=== PATIENT | female | born 1950 | race Caucasian/White ===

== ENCOUNTER 2017-06-20 08:49 | Day surgery (SDC) | payer OTHER ==
[2017-05-19 13:11] VITALS: BMI 49.0
[2017-05-19 13:21] VITALS: BMI 49.0
[2017-06-16 10:03] VITALS: BMI 52.0
--- NOTE | 2017-06-16 10:29 | PAT Medication Instructions ---
Service Date Jun 16, 2017. Current Home Medication List Aspirin (Aspirin Ec), 2 TABS PO QAM Cholecalciferol (Vitamin D3), 1 TAB PO QAM Glipizide (Glipizide Er), 1 TAB PO QPM Hydrochlorothiazide (Hctz), 50 MG PO QAM Latanoprost (Xalatan 0.005% Oph Mildred), 1 DROPS OPB HS Lisinopril (Zestril), 40 MG PO QAM Metformin HCl (Metformin HCl), 1 TAB PO BID Metoprolol Succ (Toprol Xl) (Toprol-Xl ), 100 MG PO QAM Multiple Vitamins W/ Minerals (Preservision Areds 2), 1 CAP PO BID Tramadol (Ultram), 50 MG PO Q8-12H PRN for Pain Trazodone HCl (Trazodone HCl), 1 TAB PO HS Medication Instructions For Your Scheduled Surgery - Check with surgeon for instructions: Aspirin (Aspirin Ec), 2 TABS PO QAM - Hold the following medications 48 hours prior to surgery: Metformin HCl (Metformin HCl), 1 TAB PO BID - Hold the following medications the morning of surgery: Cholecalciferol (Vitamin D3), 1 TAB PO QAM Hydrochlorothiazide (Hctz), 50 MG PO QAM Lisinopril (Zestril), 40 MG PO QAM Multiple Vitamins W/ Minerals (Preservision Areds 2), 1 CAP PO BID - Take the following medications the morning of surgery with a sip of water: Tramadol (Ultram), 50 MG PO Q8-12H PRN for Pain (okay to take up to 4 hours prior to surgery if needed) Metoprolol Succ (Toprol Xl) (Toprol-Xl ), 100 MG PO QAM Amlodipine 10mg daily - Take the following medications as scheduled the night before surgery: Latanoprost (Xalatan 0.005% Oph Mildred), 1 DROPS OPB HS Trazodone HCl (Trazodone HCl), 1 TAB PO HS Tramadol (Ultram), 50 MG PO Q8-12H PRN for Pain (if needed) Glipizide (Glipizide Er), 1 TAB PO QPM If you have any questions please call us at [phone] or [phone] or [phone]
--- NOTE | 2017-06-16 11:04 | DIAGNOSTIC IMAGING REPORT ---
TWO VIEW CHEST CLINICAL HISTORY: Preoperative examination. FINDINGS: PA and lateral chest radiographs are obtained. No prior studies are available for comparison at the time of dictation. The cardiomediastinal silhouette is unremarkable. Linear atelectasis versus scarring is seen in the left lower lung. There is mild elevation of right hemidiaphragm. No airspace consolidation or pleural effusion is seen. There is no pneumothorax. The skeletal structures are osteopenic. Degenerative change is noted throughout the thoracic spine. Surgical clips are noted in the upper abdomen. IMPRESSION: No active disease in the chest. Electronically signed by: Jesus Michael M.D. 06/16/2017 11:03 AM Dictated Date/Time: 06/16/2017 11:02 AM
[2017-06-16 11:37] LABS: PTT PATIENT 22.6 SECONDS (21.0-31.0)
[~2017-06-20] VITALS: Ht 154.9 cm; Wt 123.8 kg
[~2017-06-20 08:49] MED LIST: AMLO10TA3 PO; ASPI81TA28 PO; ATROPINE SULFATE 0.1 MG/ML 5ML SYR IV PRN; CHOL20007 PO; CLINDAMYCIN IV 900 MG in DEXTROSE 5% 50ML IV SCH; DSY/150 PO; EpHEDrine SULFATE INJ 50 MG/ML AMP IV PRN; FENTANYL CITRATE INJ 50 MCG/1 ML 2 ML VIAL IV PRN; GLC500 PO; GLIP-197 PO; HYDR50TA3 PO; LACTATED RINGER'S 1000ML 1,000 ML IV SCH; LATA0.5S OPB; LISI-794 PO; METO100T44 PO; MULT60CA PO; ONDANSETRON INJ 2 MG/ML 2 ML VIAL IV PRN; ROPIVACAINE 0.5% 5 MG/ML 30 ML VIAL ONE; TRAM-10 PO
[2017-06-20] MEDS ORDERED: MIDAZOLAM HCL 1 MG/ML 2ML VIAL ONE (09:29)
[2017-06-20] MEDS ORDERED: EpHEDrine SULFATE INJ 50 MG/ML AMP ONE (09:29)
[2017-06-20] MEDS ORDERED: DEXAMETHASONE SOD INJ 4 MG/ML VIAL ONE (09:29)
[2017-06-20] MEDS ORDERED: SUCCINYLCHOLINE CHLORIDE 20 MG/ML 10 ML VIAL IV ONE (09:29)
[2017-06-20] MEDS ORDERED: ONDANSETRON INJ 2 MG/ML 2 ML VIAL ONE (09:29)
[2017-06-20] MEDS ORDERED: FENTANYL CITRATE INJ 50 MCG/1 ML 2 ML VIAL ONE (09:29)
[2017-06-20] MEDS ORDERED: PROPOFOL IV EMULSION 10 MG/ML 20 ML VIAL IV ONE (09:29)
[2017-06-20] MEDS ORDERED: NEOSTIGMINE METHYLSULFATE 5 MG/5 ML SYR ONE (09:29)
[2017-06-20] MEDS ORDERED: GLYCOPYRROLATE INJ 0.2 MG/ML VIAL ONE (09:29)
[2017-06-20] MEDS ORDERED: LIDOCAINE HCL 2% 2 ML VIAL (20MG/ML) ONE (09:29)
[2017-06-20] MEDS ORDERED: PHENYLEPHRINE HCL INJ 10 MG/ML VIAL ONE (09:29)
[2017-06-20 09:33] VITALS: BP_SYST 170; PULSE 79; TEMP 36.5; O2SAT 98; Ht 154.9 cm; Wt 123.8 kg
--- NOTE | 2017-06-20 09:36 | History & Physical Bridge Note ---
H&P Re-Evaluation Bridge Note: I have examined the patient, reviewed the History & Physical and in the interval since the performance of the History & Physical I have noted the following changes of clinical significance:chart reviewed/consent reviewed. No changes noted
[2017-06-20] MEDS ORDERED: SODIUM CHLORIDE 0.9% 1000ML 1,000 ML IV SCH (09:38)
--- NOTE | 2017-06-20 09:38 | Discharge Instructions ---
Discharge Instructions Date of Service Jun 20, 2017. Visit Reason for Visit: Left Shoulder Rotator Cuff Tear Discharge Discharge Diagnosis / Problem: same Discharge Goals Goal(s): Decrease discomfort, Improve function, Increase independence Medications Stopped Medications Name(s): resume all meds as scripts dictate Restart Stopped Medication(s): see above Activity Recommendations Activity Limitations: as noted below Lifting Limitations: until after follow-up appointment Exercise/Sports Limitations: until after follow-up appointment May Resume Sexual Activity: when tolerated, after follow-up appointment Shower/Bathe: keep incision dry Driving or Machine Use: Anesthesia . Post Anesthesia Instructions: If you have had General Anesthesia or IV Sedation: * Do not drive today. * Resume driving when surgeon permits. * Do not make important decisions or sign legal documents today. * Call surgeon for: 1. Temperature elevations greater than 101 degrees F. 2. Uncontrollable pain. 3. Excessive bleeding. 4. Persistent nausea and vomiting. 5. Medication intolerance (nausea, vomiting or rash). * For nausea and vomiting use only clear liquids such as: tea, soda, bouillon until nausea subsides, then gradually increase diet as tolerated. * If you have any concerns or questions, call your surgeon's office. If physician is unavailable and it is an emergency, call 911 or go to the nearest emergency room. . Instructions / Follow-Up Instructions / Follow-Up The following are instructions to follow after "Shoulder Surgery" including, Acromioplasty, Rotator Cuff Repair and Instability Surgery ACTIVITY RECOMMENDATIONS: * Minimize activity after surgery. * No excessive walking, jogging, sports or laboring. * Return to activity is individualized depending on the patient and type of surgery. * Driving is not permitted until at least your first post operative visit. Please ask your doctor when it is safe to resume driving. * Expect increased discomfort with increased activity. Continue to ice the shoulder as needed. SCHOOL/WORK RECOMMENDATIONS: * You may return to sedentary work or school when you are feeling more comfortable. This is usually 3-7 days after surgery. MEDICATIONS: * You will have a prescription for pain medication and an anti-inflammatory medication after surgery. * Use the pain medication for severe pain and the anti-inflammatory for less severe pain. Once the pain medication has run out, try to use the anti-inflammatory medication. If this is not effective, contact the office for assistance. * The pain medication may cause nausea, constipation and drowsiness. You should see how they affect you before driving or similar activity. * The anti-inflammatory medication may cause stomach upset and bleeding. If this occurs let your doctor know immediately . * Take a stool softener like Colace or a laxative like Senokot to prevent constipation. DIET: * Resume previous diet. SPECIAL CARE: ICE: You have the option of an ice cooler, gel packs or ice bags. * If you have an ice cooler, refer to the instructions for that device. The ice cooler may be used continuously. * If you do not have an ice cooler, you will need to use ice bags or gel packs. Do not apply ice directly to the skin. Use a thin dressing or jerad shirt between the skin and ice bag. Apply ice for 20-30 minutes and repeat every 2-4 hours. This is especially important for the first 7-10 days after surgery. Once the pain improves, use ice as needed. ELEVATION: * You may be more comfortable sleeping in an upright position. Use the sling to elevate your arm. DRESSING: * Your dressing will be changed at your first therapy appointment approximately 4-5 days after surgery. Band-aids, tape strips or gauze may be applied. You may then change your dressing daily. * Reapply dressing followed by the EBIce cooling pad (if chosen) and then the sling. * Always wash your hands prior to touching the incision area. * Once the stitches are removed, you may leave the wound open to air or cover with gauze. * Expect some bloody drainage for the first few days after surgery. * Leave the tape strips, if present, in place for 5-7 days. * Band-aids and gauze may be changed daily. * There may be a gauze pad in your armpit area. This can be changed daily or replaced by a dry washcloth. SLING/BRACE: * You will need to use a sling or brace after surgery. The length of time the sling is used is dependent upon the type of surgery performed. * Arthroscopic Acromioplasty requires use of the sling for 2-4 weeks for comfort. * Labral procedures and Rotator Cuff Repairs require use of the sling for a longer period of time. Please check with your doctor prior to discontinuing the sling. BATHING: * You may shower or sponge-bathe immediately after surgery. The post operative shoulder dressing is mostly water-tight. You may shower right over this dressing, but be reasonably careful not to get the gauze or incision wet. * Once the dressing has been changed on the fourth or fifth day after surgery, you may shower and get the incision wet. * Wash with regular soap and water. * Do not bathe (submerge the incision), soak, swim or use a hot tub until the incision is completely healed over with normal skin and the doctor has given the OK to proceed. * There is no need to apply any ointments, powders or salves to your incision. * Do not apply alcohol or hydrogen peroxide directly to the incision. * Diluted peroxide (50:50 mixture with sterile saline) may be used to clean dried blood from around the incision area. THERAPY: * You will begin therapy four or five days after surgery. * Organized therapy with the therapist is important for the first 2-4 months after surgery depending on the type of procedure. During that time you will attend therapy 1-3 times per week. * You will also need to do daily exercises for range of motion and strength as instructed. * Patients who have a Capsular Shift Procedure will need to abide by temporary range of motion limitations. * Patients having Rotator Cuff Surgery are not allowed to actively lift their arms until 4-6 weeks after surgery. * Please check with your doctor regarding appropriate motion restrictions. FOLLOW UP VISIT: * If not already scheduled, please call the office at to schedule a follow-up appointment for 10 days after surgery and monthly thereafter. Diet Recommendations Recommended Home Diet: resume previous diet Procedures Procedures Performed: see op note Pending Studies Studies pending at discharge: no Medical Emergencies . Who to Call and When: Medical Emergencies: If at any time you feel your situation is an emergency, please call 911 immediately. . Non-Emergent Contact Non-Emergency issues call your: Specialist Call Non-Emergent contact if: temperature is above 101.5, wound has increased drainage, wound has increased redness, wound has increased pain . . "Provider Documentation" section prepared by Valentin Vences. .
[2017-06-20] MEDS ORDERED: LIDOCAINE HCL 2% LOCAL 50ML VIAL ONE (09:40)
[2017-06-20] MEDS ORDERED: EpINEphrine HCL INJ 1 MG/ML 1ML SYRINGE ONE (09:40)
[2017-06-20] MEDS ORDERED: KETOROLAC TROMETHAMINE 15 MG/ML VIAL IV. PRN (09:45)
[2017-06-20] MEDS ORDERED: ONDANSETRON INJ 2 MG/ML 2 ML VIAL IV PRN (09:45)
[2017-06-20] MEDS ORDERED: OXYCODONE/ACETAMINOPHEN 5-325 TAB PO PRN (09:45)
[2017-06-20] MEDS ORDERED: SODIUM CHLORIDE 0.9% INJ 10 ML VIAL ONE (10:12)
[2017-06-20] MEDS ORDERED: BUPIVACAINE 0.5 % 5 MG/1 ML MPF 30ML VIAL ONE (10:32)
--- NOTE | 2017-06-20 11:59 | [facility] Post Operative Brief Note ---
Immediate Operative Summary Operative Date Jun 20, 2017. Pre-Operative Diagnosis rortator cuff tear , left shoulder Post-Operative Diagnosis same Procedure(s) Performed Left Shoulder: Arthroscopy, 2 cm Rotator Cuff Repair, Biceps Tenotomy , Subacromial Decompression Surgeon Dr Vences Cupola Melter Helper Surgeon(s) none Estimated Blood Loss 20ml Findings biceps tendonopathy/impingement/rotator cuff tear Fluids (cc crystalloids) 1100cc Specimens none Drains none Anesthesia GET/block Complication(s) None Disposition Recovery Room / PACU
--- NOTE | 2017-06-20 12:21 | OPERATIVE REPORT ---
DATE OF OPERATION: 06/20/2017 PREOPERATIVE DIAGNOSIS: Left shoulder rotator cuff tear, biceps tendinopathy and impingement. POSTOPERATIVE DIAGNOSIS: Same. OPERATION PERFORMED: 1. Exam under anesthesia. 2. Diagnostic arthroscopy. 3. Arthroscopic biceps tenotomy. 4. Arthroscopic subacromial decompression with bursectomy. 5. Arthroscopic rotator cuff repair 2 cm tear. SURGEON: Dr. Vences. RN UTILIZATION MANAGEMENT UM: None. No resident or fellow available. No PA available. PERIOPERATIVE SITUATION: Medically cleared female with intractable shoulder pain. Physical exam, x-ray and MRI scan consistent with the above diagnosis. She has failed conservative management. She wants to proceed with surgical treatment. OPERATION AND FINDINGS: PROCEDURE: The patient appropriately identified, site verified, consent verified, 900 mg clindamycin confirmed as being given. The shoulder was examined revealing no instability. She was then sterilely placed in a beach chair position. She is a large person so everything was appropriately padded. The arm was prepped and draped in usual routine fashion. Arthroscopy commenced through a posterior portal made roughly 2.5 cm medial and inferior to posterolateral tip of the acromion. Landmarks were hard to feel. Joint was entered without difficulty. An anterior portal made just off the edge of the AC joint. The joint entered. Immediately encountered was a high grade partial thickness tear of the biceps long head with a large flap and large tenosynovitis in the shoulder joint. This was released and then debrided. The intraarticular synovitis was then debrided, the subscapularis was intact. Rotator cuff tear was identified. The posterior cuff was intact, it was the anterior cuff supraspinatus. There was a large amount of tendinopathy which was debrided. The subacromial space was then entered. The 2 accessory anterior lateral portals made with needles, they were then enlarged and cannulas placed. Bursectomy was completed. The rotator cuff tear was then debrided, it was then mobilized. Three FiberLink sutures were placed and one 4.75 anchor placed and repaired the cuff back down into the bed. It was quite mobile and repaired nicely. Tissue quality was reasonable. The cuff tear was then repaired from the lateral side, it looked good. The procedure was then terminated. All instruments and fluid removed. The portals closed with 3-0 nylon suture, dressed with Xeroform, 4 x 4 gauze, ABD pads, Ioban dressing and shoulder immobilizer placed. Estimated blood loss was roughly 20 mL. Crystalloid roughly 1100 mL. DVT prophylaxis with SCDs during the case. I attest to the content of the Intraoperative Record and any orders documented therein. Any exception s are noted below.
[2017-06-20] MEDS ORDERED: ALBUTEROL HFA INHALER 8.5 GM INH ONE (12:22)
[2017-06-20] MEDS ORDERED: OXYC-57 PO (12:38)
--- NOTE | 2017-06-20 12:41 | Anesthesiology Progress Note ---
Anesthesia Post Op Note Date & Time Jun 20, 2017 at 12:41 Vital Signs Pain Intensity: 0 Vital Signs Past 12 Hours Date Time Temp Pulse Resp B/P (MAP) Pulse Ox O2 Delivery O2 Flow Rate FiO2 06/20/17 12:30 74 16 150/75 100 Nasal Cannula 2 06/20/17 12:20 75 15 150/69 98 Nasal Cannula 3 06/20/17 12:10 36 85 16 158/78 98 Nasal Cannula 3 06/20/17 09:33 36.5 79 18 170/ (56) 98 Room Air Notes Mental Status: alert / awake / arousable, participated in evaluation Pt Amnestic to Procedure: Yes Nausea / Vomiting: adequately controlled Pain: adequately controlled Airway Patency, RR, SpO2: stable & adequate BP & HR: stable & adequate Hydration State: stable & adequate Anesthetic Complications: no major complications apparent
[2017-06-20 12:55] VITALS: BP 132/69; PULSE 74; TEMP 36.4; O2SAT 93
[2017-06-20 13:35] VITALS: BP 124/59; PULSE 72; O2SAT 93
[2017-06-20 13:55] VITALS: BP 130/59; PULSE 73; TEMP 36.4; O2SAT 93
== END 2017-06-20 14:22 | disposition home or self-care (01) ==
LOC: C.ACU 08:49
PROVIDERS: ATTEND Physical Medicine & Rehabilitation Sports Medicine
DX: M75.102 Unspecified rotator cuff tear or rupture of left shoulder, not specified as traumatic (principal); M25.812 Other specified joint disorders, left shoulder; M75.22 Bicipital tendinitis, left shoulder; I12.9 Hypertensive chronic kidney disease with stage 1 through stage 4 chronic kidney disease, or unspecified chronic kidney disease; N18.9 Chronic kidney disease, unspecified; E11.22 Type 2 diabetes mellitus with diabetic chronic kidney disease; E78.5 Hyperlipidemia, unspecified; G47.33 Obstructive sleep apnea (adult) (pediatric); K21.9 Gastro-esophageal reflux disease without esophagitis; K44.9 Diaphragmatic hernia without obstruction or gangrene; D64.9 Anemia, unspecified; F32.9 Major depressive disorder, single episode, unspecified; E66.01 Morbid (severe) obesity due to excess calories; Z68.43 Body mass index [BMI] 50.0-59.9, adult; M79.7 Fibromyalgia; H35.30 Unspecified macular degeneration; Z87.891 Personal history of nicotine dependence; Z79.82 Long term (current) use of aspirin; Z79.84 Long term (current) use of oral hypoglycemic drugs; Z79.899 Other long term (current) drug therapy

== ENCOUNTER → 2017-07-31 | Outpatient (CLI) | payer OTHER ==
[~2017-07-31] MED LIST changes: +AMLO-114 PO; -AMLO10TA3 PO; -ATROPINE SULFATE 0.1 MG/ML 5ML SYR IV PRN; -CLINDAMYCIN IV 900 MG in DEXTROSE 5% 50ML IV SCH; -EpHEDrine SULFATE INJ 50 MG/ML AMP IV PRN; -FENTANYL CITRATE INJ 50 MCG/1 ML 2 ML VIAL IV PRN; -LACTATED RINGER'S 1000ML 1,000 ML IV SCH; -ONDANSETRON INJ 2 MG/ML 2 ML VIAL IV PRN; +OXYC-57 PO; -ROPIVACAINE 0.5% 5 MG/ML 30 ML VIAL ONE
== END | disposition home or self-care (01) ==
LOC: C.RDSM 17:14
PROVIDERS: ATTEND Physical Medicine & Rehabilitation Sports Medicine
DX: M75.122 Complete rotator cuff tear or rupture of left shoulder, not specified as traumatic (principal)